=== PATIENT | female | born 1985 | race Caucasian/White ===

== ENCOUNTER 2018-10-20 11:38 | Emergency (ER) | payer OTHER ==
--- NOTE | 2018-10-20 12:05 | PDOC ---
Rapid Medical Evaluation Time Seen by Provider: 10/20/18 12:03 Medical Evaluation: Allergies Allergy/AdvReac Type Severity Reaction Status Date / Time No Known Allergies Allergy Verified 09/15/13 14:11 10/20/18 12:03 I have performed a brief in-person evaluation of this patient. The patient presents with a chief complaint of: back pain s/p slipand fall on 3 steps. Denies head trauma or LOC. Pertinent physical exam findings: No deformities, crepitus or step-offs to cervical, thoracic or lumbar spine. I have ordered the following: xrays, upt, tylenol The patient will proceed to the ED for further evaluation. Discharge Disposition - Diagnosis Back pain - Referrals - Patient Instructions - Post Discharge Activity
[2018-10-20 12:06] VITALS: BP 106/71; PULSE 97; TEMP 98.1; BMI 36.6
[2018-10-20] MEDS ORDERED: ACETAMINOPHEN 500 MG TABLET (FP) PO ONE (12:06)
[2018-10-20] MEDS ORDERED: ACETAMINOPHEN 500 MG TABLET (FP) ONE (12:58)
--- NOTE | 2018-10-20 14:32 | PDOC ---
History of Present Illness - General Chief Complaint: Injury Stated Complaint: FALL/BACK PAIN Time Seen by Provider: 10/20/18 12:03 - History of Present Illness Initial Comments: 10/20/18 14:28 32-year-old female presents for evaluation of lower back pain after falling down hitting her lower back on steps. She did not hit her head. No loss of consciousness post injury nausea vomiting or visual changes. No loss of bowel bladder function or radicular symptoms. Past History - Past Medical History Allergies/Adverse Reactions: Allergies Allergy/AdvReac Type Severity Reaction Status Date / Time No Known Allergies Allergy Verified 10/20/18 12:47 Home Medications: Ambulatory Orders Cyclobenzaprine HCl [Flexeril 10 mg] 10 mg PO HS PRN #10 tablet 10/20/18 COPD: No GI Disorders: Yes (ULCERATIVE COLITIS) - Surgical History Abdominal Surgery: Yes Cholecystectomy: Yes - Suicide/Smoking/Psychosocial Hx Smoking Status: No Smoking History: Never smoked Number of Cigarettes Smoked Daily: 0 Review of Systems - Review of Systems Musculoskeletal: Yes: Back Pain *Physical Exam - Vital Signs Last Vital Signs Temp Pulse Resp BP Pulse Ox 98.1 F 97 H 20 106/71 98 10/20/18 12:04 10/20/18 12:04 10/20/18 12:04 10/20/18 12:04 10/20/18 12:04 - Physical Exam Comments: 10/20/18 14:28 Lumbar spine skin color and temperature are normal range of motion is full. Tendernesses out of proportion to the examination. No midline tenderness there is no midline step-off deformity or crepitation. Mild paralumbar musculature spasm and tenderness. 5 out of 5 strength in bilateral lower extremities without gross sensory motor deficits neurovascular intact negative straight leg raise test bilaterally. ED Treatment Course - ADDITIONAL ORDERS Additional order review: Laboratory Results 10/20/18 12:50 Urine HCG, Qual Negative - Medications Given in the ED: ED Medications Discontinued Medications Generic Name Dose Route Start Last Admin Trade Name Freq PRN Reason Stop Dose Admin Acetaminophen 1,000 mg 10/20/18 12:06 10/20/18 13:01 Tylenol - PO 10/20/18 12:07 1,000 mg ONCE ONE Administration Medical Decision Making - Medical Decision Making 10/20/18 14:29 Lumbar spine contusion. Discussed use of Tylenol and Motrin as well as Flexeril at home follow-up and spine surgery is not getting better. *DC/Admit/Observation/Transfer Diagnosis at time of Disposition: Back pain - Discharge Dispostion Disposition: HOME Condition at time of disposition: Stable Decision to Admit order: No - Referrals Referrals: Rolando Tinoco [Primary Care Provider] - Mikhail Valverde MD [Staff Physician] - - Patient Instructions Printed Discharge Instructions: Low Back Pain, DI for Low Back Pain Additional Instructions: Please take the Flexeril as directed. Return to the emergency room for worsening symptoms. Follow-up with spine surgery in 1-2 days should her symptoms worsen or go unresolved. - Post Discharge Activity Forms/Work/School Notes: Back to Work
== END 2018-10-20 14:34 | disposition home or self-care (01) ==
LOC: JERFT 11:38
DX: S30.0XXA Contusion of lower back and pelvis, initial encounter (principal); W10.8XXA Fall (on) (from) other stairs and steps, initial encounter; Y93.89 Activity, other specified; Y92.89 Other specified places as the place of occurrence of the external cause; Y99.8 Other external cause status
CPT/HCPCS: 72070-TC-FY; 72100-TC-FY; 84703; 99281-25

== ENCOUNTER 2020-03-21 16:10 | Emergency (ER) | payer OTHER ==
[2020-03-21 16:40] VITALS: BP 125/80; PULSE 100; TEMP 97.8; BMI 41.5
[2020-03-21 18:25] LABS: BASO % 0.4 % (0-2.0); EOS % 0.8 % (0-4.5); HEMATOCRIT 39.1 % (32.4-45.2); LYMPH % 19.9 % (8-40); MCH 29.3 pg (25.7-33.7); MCHC 33.1 g/dl (32.0-36.0); MEAN CELL VOLUME 88.4 fl (80-96); MEAN PLT VOLUME 9.8 fl (7.5-11.1); MONO % 5.9 % (3.8-10.2); PLATELET COUNT 269 K/MM3 (134-434); RBC 4.42 M/mm3 (3.60-5.2); RDW 14.2 % (11.6-15.6); WHITE BLOOD COUNT 11.4 K/mm3 (4.0-10.0)
[2020-03-21 18:33] LABS: EPI CELLS 5 /uL (0-25.1); HYALINE CASTS 0 /uL (0-3.1); PH,URINE 5.5 (5.0-8.0); URINE APPEARANCE CLEAR; URINE BACTERIA 31 /uL (0-1359); URINE BILIRUBIN NEGATIVE (NEGATIVE); URINE COLOR YELLOW; URINE GLUCOSE (UA) NEGATIVE (NEGATIVE); URINE KETONE NEGATIVE (NEGATIVE); URINE LEUK ESTERASE NEGATIVE (NEGATIVE); URINE NITRITE NEGATIVE (NEGATIVE); URINE PROTEIN NEGATIVE (NEGATIVE); URINE RBC 16 /uL (0-23.9); URINE UROBILINOGEN 0.2 mg/dL (0.2-1.0); URINE WBC 2 /uL (0-25.8)
[2020-03-21 18:52] LABS: POTASSIUM 3.9 mmol/L (3.5-5.1)
[2020-03-21 18:54] LABS: ALBUMIN 3.7 g/dl (3.4-5.0); BLOOD UREA NITROGEN 11.1 mg/dL (7-18); CALCIUM 8.4 mg/dL (8.5-10.1)
[2020-03-21 18:58] LABS: CREATININE 0.7 mg/dL (0.55-1.3)
[2020-03-21 18:59] LABS: BILIRUBIN,TOTAL 0.3 mg/dL (0.2-1); TOT PROT 6.9 g/dl (6.4-8.2)
== END 2020-03-21 20:02 | disposition home or self-care (01) ==
LOC: JER 16:10
DX: O20.9 Hemorrhage in early pregnancy, unspecified (principal); Z3A.09 9 weeks gestation of pregnancy
CPT/HCPCS: 36415; 76817-TC; 80053; 81003; 84702; 85025; 86850; 86900; 86901; 87086; 99284-25

== ENCOUNTER 2020-03-24 23:07 | Emergency (ER) | payer OTHER ==
[2020-03-24 23:16] VITALS: BP 122/63; PULSE 90; TEMP 98.6; BMI 41.5
[2020-03-25 01:28] LABS: EPI CELLS 4 /uL (0-25.1); HYALINE CASTS 0 /uL (0-3.1); PH,URINE 5.5 (5.0-8.0); URINE APPEARANCE CLEAR; URINE BACTERIA 28 /uL (0-1359); URINE BILIRUBIN NEGATIVE (NEGATIVE); URINE COLOR YELLOW; URINE GLUCOSE (UA) NEGATIVE (NEGATIVE); URINE KETONE TRACE (NEGATIVE); URINE LEUK ESTERASE NEGATIVE (NEGATIVE); URINE NITRITE NEGATIVE (NEGATIVE); URINE PROTEIN NEGATIVE (NEGATIVE); URINE RBC 50 /uL (0-23.9); URINE WBC 2 /uL (0-25.8)
== END 2020-03-25 02:35 | disposition home or self-care (01) ==
LOC: JER 23:07
DX: O03.9 Complete or unspecified spontaneous abortion without complication (principal)
CPT/HCPCS: 36415; 81003; 84702; 99284-25

== ENCOUNTER 2021-04-30 16:37 | Emergency (ER) | payer OTHER ==
[2021-04-30 17:41] VITALS: TEMP 98.1; BMI 38.2
[2021-04-30 20:36] VITALS: BP 110/82; PULSE 86
== END 2021-04-30 20:15 | disposition home or self-care (01) ==
LOC: JER 16:37
DX: M25.572 Pain in left ankle and joints of left foot (principal)
CPT/HCPCS: 93971-TC; 99283-25